=== PATIENT | male | born 1940 | race Caucasian/White ===

== ENCOUNTER → 2017-01-25 | Outpatient (CLI) | payer MEDICARE, BC ==
--- NOTE | 2017-01-25 16:49 | MR ---
EXAMINATION TYPE: MR knee LT wo con DATE OF EXAM: 01/25/2017 COMPARISON: Outside left knee x-ray from 2 days ago. HISTORY: Left Knee Pain TECHNIQUE: Multiplanar, multisequence images of the knee is performed without IV contrast. FINDINGS: MEDIAL MENISCUS: Anterior horn is intact without tear. Posterior horn is markedly abnormal with florin ed increase globular signal distending to articular surface. Complex tear is felt present. There is m arked medial extrusion of medial meniscus on coronal images. LATERAL MENISCUS: Anterior and posterior horns are intact without tear. CRUCIATE LIGAMENTS: The anterior and posterior cruciate ligaments are intact. Posterior cruciate liga ment is markedly thickened, cannot exclude bucket-handle displaced meniscal tear causing this finding . COLLATERAL LIGAMENTS: The medial collateral ligament and lateral collateral ligament complex are inta ct and unremarkable. EXTENSOR MECHANISM: Visualized quadriceps and patellar tendons are intact. EFFUSION: There is partial visualization of moderate to large size suprapatellar joint effusion. POPLITEAL CYST: No popliteal/villanueva cyst. TRICOMPARTMENT SPACES: There is moderate joint space loss patellofemoral compartment with mild spurri ng. There is mild to moderate medial joint space loss. CARTILAGE: There is full-thickness cartilaginous loss over the distal medial femoral condyle with het erogeneous increased signal seen posteriorly on sagittal images 22 through 24 and coronal images 22 a nd 23 measuring up to 1.0 cm transversely. There is chondromalacia patella with thinning of articular cartilage over posterior patellar pole, full-thickness loss is present. BONE MARROW SIGNAL: No no suspicious edema in the posterior patella is evident. OTHER: No additional significant abnormality is appreciated. IMPRESSION: 1. Complex full-thickness tear posterior horn of medial meniscus extending into central body. Flipped meniscus may be present. 2. Moderate tricompartment degenerative changes with full-thickness cartilaginous loss medial tibiofe moral and full-thickness chondromalacia patella. There is osseous contusion or bone marrow edema over the distal medial femoral condyle noted. 3. Moderate to large size suprapatellar joint effusion.
== END | disposition home or self-care (01) ==
LOC: RADMRIMAIN 12:57
PROVIDERS: ATTEND Orthopaedic Surgery
DX: S83.232A Complex tear of medial meniscus, current injury, left knee, initial encounter (principal); M25.462 Effusion, left knee; M22.42 Chondromalacia patellae, left knee

== ENCOUNTER 2017-02-07 08:58 | Day surgery (SDC) | payer MEDICARE, BC ==
[2017-02-06 08:48] VITALS: BMI 26.6
[~2017-02-07 08:58] MED LIST: LACTATED RINGERS 1,000 ML IV SCH
[2017-02-07] MEDS ORDERED: LIDOCAINE 1% 20 ML VIAL (10MG/ML) FOR IV START INTRADERMA ONE (09:38)
[2017-02-07 09:47] VITALS: TEMP 99
[2017-02-07] MEDS ORDERED: PROPOFOL 10 MG/ML 20 ML VIAL IV ONE (10:28)
--- NOTE | 2017-02-07 10:39 | P.GSHP ---
History of Present Illness H&P Date: 02/07/17 Chief Complaint: Screening colonoscopy This is a 76-year-old male referred from Dr. Stone. Patient presents today for screening colonoscopy. He's had issues with some hemorrhoidal bleeding. Past Medical History Past Medical History: Hypertension, Skin Disorder Additional Past Medical History / Comment(s): rash luan legs, hemorrhoids History of Any Multi-Drug Resistant Organisms: None Reported Past Surgical History: Hernia Repair Past Anesthesia/Blood Transfusion Reactions: No Reported Reaction Additional Past Anesthesia/Blood Transfusion Reaction / Comment(s): no family hx Smoking Status: Former smoker - Past Family History Mother Family Medical History: Unable to Obtain Medications and Allergies Home Medications Medication Instructions Recorded Confirmed Type Atorvastatin [Lipitor] 40 mg PO HS 02/06/17 02/07/17 History Esomeprazole Magnesium [NexIUM] 20 mg PO DAILY PRN 02/06/17 02/07/17 History Hydrochlorothiazide [Hydrodiuril] 12.5 mg PO DAILY 02/06/17 02/07/17 History Allergies Allergy/AdvReac Type Severity Reaction Status Date / Time doxycycline Allergy Rash/Hives Verified 02/07/17 09:45 Sulfa (Sulfonamide Allergy Unknown Verified 02/07/17 09:20 Antibiotics) Surgical - Exam Vital Signs Temp Pulse Resp BP Pulse Ox 99.0 F 100 18 139/74 95 02/07/17 09:18 02/07/17 09:18 02/07/17 09:18 02/07/17 09:18 02/07/17 09:18 - General well developed, no distress - Eyes PERRL - ENT normal pinna - Neck no masses - Respiratory normal expansion - Cardiovascular Rhythm: regular - Abdomen Abdomen: soft, non tender Assessment and Plan Plan: Hemorrhoidal bleeding. We'll perform screening colonoscopy.
--- NOTE | 2017-02-07 10:51 | P.OP ---
Date of Procedure: 02/07/17 Preoperative Diagnosis: Screening colonoscopy Hemorrhoids Postoperative Diagnosis: External hemorrhoids Right colon polyp Diverticulosis Procedure(s) Performed: Colonoscopy Anesthesia: MAC Surgeon: Asher Tse Pathology: other (Right colon polyp) Condition: stable Disposition: PACU Description of Procedure: The patient's placed on the endoscopy table in the lateral position. He received IV sedation. Digital rectal exam was performed which revealed no abnormalities. The prostate was symmetric without nodules. The flexible colonoscope was then placed the patient's anus and passed throughout the entire colon. The ileocecal valve sutures. The cecum appeared normal. In the right colon there was a small sessile polyp. This removed the forcep. Scope was then brought back and the remainder of the transverse colon appeared normal. The descending and; had mild diverticulosis. The scope was then brought back the rectum and this appeared normal. Scope was withdrawn for patient.
[2017-02-07 11:19] VITALS: BP 118/75; PULSE 84; RESP 16
== END 2017-02-07 11:37 | disposition home or self-care (01) ==
LOC: ORWHC2ENDO 08:58
PROVIDERS: ATTEND Surgery
DX: Z12.11 Encounter for screening for malignant neoplasm of colon (principal); D12.2 Benign neoplasm of ascending colon; K57.30 Diverticulosis of large intestine without perforation or abscess without bleeding; K64.4 Residual hemorrhoidal skin tags; I10 Essential (primary) hypertension; Z87.891 Personal history of nicotine dependence; Z79.899 Other long term (current) drug therapy; Z88.1 Allergy status to other antibiotic agents
CPT/HCPCS: 88305; 45380; J2704

== ENCOUNTER → 2019-07-22 | Outpatient (CLI) | payer MEDICARE ==
--- NOTE | 2019-07-22 15:57 | CT ---
EXAMINATION TYPE: CT brain wo con DATE OF EXAM: 07/22/2019 HISTORY: Syncope and collapse. CT DLP: 1027.9 mGycm. Automated Exposure Control for Dose Reduction was Utilized. TECHNIQUE: CT scan of the head is performed without contrast. COMPARISON: None. FINDINGS: There is no acute intracranial hemorrhage or midline shift identified. There is diffuse v entricular and sulcal prominence consistent with diffuse age-related cerebral atrophy. There is low- attenuation in the periventricular white matter consistent with chronic small vessel ischemic change. There is increased opacity right mastoid air cells with additional opacity surrounding middle ear os sicles. Scleral calcification bilateral globes. Nasal sinuses are clear. Nasal septum deviated to rig ht of midline. IMPRESSION: No acute intracranial hemorrhage or midline shift. There is mild to moderate diffuse ag e-related cerebral atrophy and chronic small vessel ischemic change noted. Possible right-sided mast oiditis and middle ear infection/cholesteatoma, correlate clinically.
--- NOTE | 2019-07-22 16:45 | US ---
EXAMINATION TYPE: US carotid duplex BILAT DATE OF EXAM: 07/22/2019 COMPARISON: NONE CLINICAL HISTORY: R55 syncope and collapse. No hx HTN. No hx TIA. Patient states passing out at doc tors office. EXAM MEASUREMENTS: RIGHT: Peak Systolic Velocity (PSV) cm/sec ----- Right CCA: 76.7 ----- Right ICA: 62.8 ----- Right ECA: 85.4 ICA/CCA ratio: 0.8 RIGHT: End Diastole cm/sec ----- Right CCA: 16.1 ----- Right ICA: 12.1 ----- Right ECA: 5.1 LEFT: Peak Systolic Velocity (PSV) cm/sec ----- Left CCA: 69.3 ----- Left ICA: 16.5 ----- Left ECA: 57.5 ICA/CCA ratio: 1.0 LEFT: End Diastole cm/sec ----- Left CCA: 13.8 ----- Left ICA: 16.5 ----- Left ECA: 7.8 VERTEBRALS (direction of flow): Right Vertebral: Antegrade Left Vertebral: Antegrade Rhythm: Normal Plaque visualized in right bulb extending into proximal ICA. No elevated velocities or significant s tenosis. Plaque seen in anterior wall of left bulb. IMPRESSION: Moderate degree of grayscale atheromatous plaquing with no sonographically evident hemod ynamically significant stenosis within either visualized carotid arterial system. Criteria for Assigning % of Stenosis / Diameter reduction (Estimation based on the indirect measurements of the internal carotid artery velocities (ICA PSV). 1. Normal (no stenosis)=ICA PSV < 125 cm/s: ratio < 2.0: ICA EDV<40 cm/s. 2. Less than 50% stenosis=ICA PSV < 125 cm/s: ratio < 2.0: ICA EDV<40 cm/s. 3. 50 to 69% stenosis=ICA PSV of 125 to 230 cm/s: ration 2.0 ? 4.0: ICA EDV 40-100 cm/s. 4. Greater than 70% stenosis to near occlusion= ICA PSV > 230 cm/s: ratio > 4.0: ICA EDV > 100 cm/s. 5. Near occlusion= ICA PSV velocities may be low or undetectable: variable ratio and ICA EDV. 6. Total occlusion=unable to detect flow.
== END | disposition home or self-care (01) ==
LOC: RADCTMAIN 15:28
PROVIDERS: ATTEND Internal Medicine
DX: G31.9 Degenerative disease of nervous system, unspecified (principal); I67.2 Cerebral atherosclerosis
CPT/HCPCS: 70450; 93880

== ENCOUNTER → 2019-09-06 | Outpatient (CLI) | payer MEDICARE ==
--- NOTE | 2019-09-06 16:05 | CT ---
EXAMINATION TYPE: CT iac wo con DATE OF EXAM: 09/06/2019 COMPARISON: CT brain 07/22/2019 HISTORY: hearing loss, ear pain CT DLP: 150 mGycm. Automated Exposure Control for Dose Reduction was Utilized. TECHNIQUE: CT scan of internal auditory canal is performed without contrast, thin cut axial images ar e obtained, coronal reformatted images are also reviewed. FINDINGS: The external auditory canals are patent bilaterally. The middle ear ossicles are symmetric and unremarkable. There is fluid filling the bilateral mastoid air cells. Fluid is also within the middle ears bilatera lly. No erosion is evident. There is no evidence of suspicious surrounding soft tissue density to suggest cholesteatoma. The scu lina is preserved bilaterally. The cochlea and the semicircular canals are symmetric and unremarkable . Internal carotid canals appear unremarkable without expansion or erosion. No suspicious cerebella r pontine angle masses are identified.. Temporomandibular joints are maintained bilaterally. Visualized paranasal sinuses are grossly clear. Visualized portion brain parenchyma is felt within normal limits. Right septal deviation is noted. IMPRESSION: 1. Bilateral otitis media 2. Bilateral fluid-filled mastoid air cells. 3. No expansion or erosion or masses within the internal auditory canals. 4. Right septal deviation
== END | disposition home or self-care (01) ==
LOC: RADCTMAIN 14:07
PROVIDERS: ATTEND Otolaryngology
DX: H66.93 Otitis media, unspecified, bilateral (principal); J34.2 Deviated nasal septum; H74.8X3 Other specified disorders of middle ear and mastoid, bilateral
CPT/HCPCS: 70480

== ENCOUNTER 2020-02-13 17:35 | Emergency (ER) | payer MEDICARE ==
[2020-02-13 17:49] VITALS: BP 182/79; PULSE 66; RESP 18; TEMP 98.9
--- NOTE | 2020-02-13 18:14 | ED ---
ENT HPI - General Chief complaint: ENT Stated complaint: ear bleeding Time Seen by Provider: 02/13/20 17:51 Source: patient Mode of arrival: ambulatory Limitations: no limitations - History of Present Illness Initial comments: Patient is a 79-year-old male presenting to the emergency department complaints of some bleeding coming from his left ear that he notices prior to arrival. Patient states he had ear tubes placed approximately 3-[address] Snell. Patient states he feels like he felt a small pop in his left ear before he noticed the bleeding. He denies any pain, dizziness, nausea or vomiting. He denies any recent illness, fever or chills. He denies any trauma to his head. He has no further complaints. - Related Data Home Medications Medication Instructions Recorded Confirmed Atorvastatin [Lipitor] 40 mg PO HS 02/06/17 03/27/17 Esomeprazole Magnesium [NexIUM] 20 mg PO DAILY PRN 02/06/17 03/27/17 hydroCHLOROthiazide [Hydrodiuril] 12.5 mg PO DAILY 02/06/17 03/27/17 Previous Rx's Medication Instructions Recorded Hydrocodone/Acetaminophen [[place] 1 each PO Q6HR PRN #20 tab 03/27/17 5-325] Allergies Allergy/AdvReac Type Severity Reaction Status Date / Time doxycycline Allergy Rash/Hives Verified 02/13/20 17:47 Sulfa (Sulfonamide Allergy Unknown Verified 02/13/20 17:47 Antibiotics) Review of Systems ROS Statement: Those systems with pertinent positive or pertinent negative responses have been documented in the HPI. ROS Other: All systems not noted in ROS Statement are negative. Past Medical History Past Medical History: Hypertension, Skin Disorder Additional Past Medical History / Comment(s): rash luan legs, hemorrhoids, History of Any Multi-Drug Resistant Organisms: None Reported Past Surgical History: Ear Surgery, Hernia Repair Additional Past Surgical History / Comment(s): tubes in his left ear, Past Anesthesia/Blood Transfusion Reactions: No Reported Reaction Additional Past Anesthesia/Blood Transfusion Reaction / Comment(s): no family hx Past Psychological History: No Psychological Hx Reported Smoking Status: Former smoker Past Alcohol Use History: None Reported Past Drug Use History: None Reported - Past Family History Mother Family Medical History: Unable to Obtain General Exam - General Exam Comments Initial Comments: GENERAL: Patient is well-developed and well-nourished. Patient is nontoxic and in no acute distress. HEAD: Atraumatic, normocephalic. EYES: Pupils equal round and reactive to light, extraocular movements intact, sclera anicteric, conjunctiva are normal. Eyelids were unremarkable. ENT: Right TM does have a tube present, there is also a small about of blood coming from the tube and dried in the ear canal. There is no active bleeding. No signs of infection. There is also a small amount of blood dried in the left ear canal, TM does not look infected, there appears to be a tube dislodged sitting in the back of the ear canal towards that TM on the left side. There are no signs of infection bilaterally. Nares patent, oropharynx clear without exudates. Moist mucous membranes. NECK: Normal range of motion, supple without lymphadenopathy or JVD. LUNGS: Unlabored respirations. Breath sounds clear to auscultation bilaterally and equal. No wheezes rales or rhonchi. HEART: Regular rate and rhythm without murmurs, rubs or gallops. ABDOMEN: Soft, nontender, normoactive bowel sounds. No guarding, no rebound. No masses appreciated. : Deferred MUSCULOSKELETAL: Normal extremities with adequate strength and normal range of motion, no pitting or edema. No clubbing or cyanosis. NEUROLOGICAL: Patient is alert and oriented x 3. Motor and sensory are also intact. Normal speech, normal gait. PSYCH: Normal mood, normal affect. SKIN: Warm, Dry, normal turgor, no rashes or lesions noted. Limitations: no limitations Course Vital Signs 02/13/20 17:45 Temperature 98.9 F Pulse Rate 66 Respiratory 18 Rate Blood Pressure 182/79 O2 Sat by Pulse 97 Oximetry Medical Decision Making - Medical Decision Making Patient is a 79-year-old male presenting for bleeding from his left ear that he noticed just prior to arrival. There is no pain with this, there was no trauma. He recently had bilateral tubes placed by Dr. Snell 3-4 months ago. I was able to visualize the tube on the right side over the left side appears to be dislodged sitting in the very back of the ear canal. Patient denies any pain at this time, no dizziness. I recommended following up with Dr. Snell in the next day or 2. Patient is agreement with this plan of care. He is stable for discharge. Return parameters were discussed with the patient and he verbalized understanding. Disposition Clinical Impression: Bleeding from left ear Disposition: HOME SELF-CARE Condition: Stable Instructions (If sedation given, give patient instructions): Earache (ED) Additional Instructions: Please return to the Emergency Department if symptoms worsen or any other concerns. Follow-up with ENT as discussed. Is patient prescribed a controlled substance at d/c from ED?: No Referrals: Caprice Yepez MD [Primary Care Provider] - 1-2 days Rusty Rey MD [STAFF PHYSICIAN] - 1-2 days
== END 2020-02-13 18:20 | disposition home or self-care (01) ==
LOC: EC 17:35
DX: H92.22 Otorrhagia, left ear (principal); I10 Essential (primary) hypertension; Z79.899 Other long term (current) drug therapy; Z88.2 Allergy status to sulfonamides; Z88.1 Allergy status to other antibiotic agents; Z87.891 Personal history of nicotine dependence; Z96.20 Presence of otological and audiological implant, unspecified
CPT/HCPCS: 99282

== ENCOUNTER → 2020-11-23 | Outpatient (CLI) | payer MEDICARE ==
--- NOTE | 2020-11-23 09:53 | CT ---
EXAMINATION TYPE: CT abdomen w con DATE OF EXAM: 11/23/2020 COMPARISON: NONE HISTORY: 80-year-old male N1 8.9, chronic kidney disease TECHNIQUE: Contiguous axial scanning of the abdomen following administration of 80 ml Isovue 300 IV c ontrast. Delayed images through the kidneys and coronal/sagittal reconstructions performed. CT DLP: 540.4 mGycm Automated exposure control for dose reduction was used. FINDINGS: Heart normal size without pericardial effusion. Lung bases clear without pleural effusion. Tiny hiatal hernia. Liver borderline in size at 17.6 cm. No focal lesion. Portal venous system is patent. Possible 9 mm cystic lesion of the right lateral pancreatic head, axial image 34 and coronal image 40 . This can be reassessed at a three-month follow-up MRI. Gallbladder, adrenal glands, spleen within normal limits. Tiny cortical defect lateral mid pole left kidney suggestive of prior infectious or vascular insult. In addition, 5 mm cortical hypodensity anterior mid pole left kidney, too small for accurate CT ana cterization, likely small cyst. Symmetric uptake and excretion of contrast from both kidneys. Moderate atherosclerotic calcifications infrarenal abdominal aorta and visualized proximal common annamaria ac arteries. No dilated small bowel, free fluid, or free air. No mesenteric or retroperitoneal lymphadenopathy. Oral contrast progressed to the hepatic flexure. There is moderate stool burden. Some lower descendin g and proximal sigmoid diverticulosis. No pericolic inflammatory change. The pelvis is not imaged. Bones: Facet arthropathy mid to lower lumbar spine. Moderate degenerative disc disease throughout. Gr yaya 1 retrolisthesis L1-L2 and L2-L3. IMPRESSION: 1. TINY 5 MM CORTICAL HYPODENSITY MID LEFT KIDNEY LIKELY A TINY CYST. SYMMETRIC UPTAKE AND EXCRETION OF CONTRAST FROM BOTH KIDNEYS. 2. POSSIBLE 9 MM CYSTIC LESION OF THE RIGHT LATERAL PANCREATIC HEAD. RECOMMEND THREE-MONTH FOLLOW-UP PANCREAS MRI IN ORDER TO REASSESS AND FURTHER CHARACTERIZE. 3. TINY HIATAL HERNIA, BORDERLINE SIZED LIVER IS 17.6 CM, AND PARTIALLY VISUALIZED LEFT-SIDED COLONIC DIVERTICULOSIS.
== END | disposition home or self-care (01) ==
LOC: RADCTMAIN 06:08
PROVIDERS: ATTEND Internal Medicine
DX: K44.9 Diaphragmatic hernia without obstruction or gangrene (principal); N28.89 Other specified disorders of kidney and ureter; N18.9 Chronic kidney disease, unspecified
CPT/HCPCS: 82565; 84520; 74160; 36415; Q9967

== ENCOUNTER → 2020-12-26 | Outpatient (CLI) | payer MEDICARE ==
--- NOTE | 2020-12-26 16:03 | XR ---
EXAMINATION TYPE: XR chest 2V DATE OF EXAM: 12/26/2020 COMPARISON: None HISTORY: 80-year-old male R05, cough TECHNIQUE: Frontal and lateral views FINDINGS: Heart normal size. Elongation/ectasia of the thoracic aorta. Mild hyperinflation. No consolidation or pleural effusion. IMPRESSION: 1. Elongation/ectasia of the thoracic aorta. 2. Hyperinflation. Correlate for underlying emphysema. 3. Otherwise, no acute process seen.
== END | disposition home or self-care (01) ==
LOC: RADXRMAIN 13:41
PROVIDERS: ATTEND Internal Medicine
DX: R91.8 Other nonspecific abnormal finding of lung field (principal); R05 Cough
CPT/HCPCS: 71046

== ENCOUNTER → 2021-01-08 | Outpatient (CLI) | payer MEDICARE ==
--- NOTE | 2021-01-09 07:23 | CT ---
EXAMINATION TYPE: CT angio chest DATE OF EXAM: 01/08/2021 8:39 PM COMPARISON: None. HISTORY: thoracic aortic ectasia CT DLP: 252.6 mGycm Automated exposure control for dose reduction was used. CONTRAST: CTA scan of the thorax is performed with IV Contrast, patient injected with 80 mL of Isovue 370, aneu [facility] protocol. 3D reconstructed images are created on an independent workstation and reviewed.. FINDINGS: LUNGS: Mild bibasilar linear scarring and/or atelectasis. No suspicious focal consolidation. No nereyda rning pulmonary masses. No pleural effusion or pneumothorax seen bilaterally. MEDIASTINUM: There is satisfactory enhancement of the central pulmonary arteries. Satisfactory enhanc ement of the aorta measuring up to 3.4 cm in diameter at the level of main pulmonary artery axial aranza ge 29. Diameter roughly 3.6 cm at level of aortic root coronal image 14. Normal three-vessel origin f rom the arch. Mild calcified plaque in the aorta with slight ectasia in the descending aorta. There are no greater than 1 cm hilar or mediastinal lymph nodes. No cardiomegaly or pericardial effusion is seen. Coronary artery calcification is noted. OTHER: Slight scoliotic curvature or positioning. 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 No greater than 4.0 cm thoracic aortic aneurysm.
== END | disposition home or self-care (01) ==
LOC: RADCTMAIN 16:21
PROVIDERS: ATTEND Internal Medicine
DX: I77.810 Thoracic aortic ectasia (principal)
CPT/HCPCS: 82565; 84520; 71275; 36415; Q9967

== ENCOUNTER → 2021-07-30 | Outpatient (CLI) | payer MEDICARE ==
--- NOTE | 2021-07-30 21:46 | XR ---
EXAMINATION TYPE: XR KUB DATE OF EXAM: 07/30/2021 Comparison: None Clinical History: 81-year-old male shortness of breath, right-sided abdominal pain, R06.09 DYSPNEA Findings: Nonobstructive bowel gas pattern. Supine imaging limited for assessment of free air. Visualized lower lungs are clear. There is only mild overall stool burden. No dilated small bowel. No definite suspic ious calcifications are seen. Some vascular calcifications in the pelvis. Mild osteoarthrosis of both hips. Impression: Nonobstructive bowel gas pattern. Mild scattered stool.
== END | disposition home or self-care (01) ==
LOC: RADXRMAIN 15:39
PROVIDERS: ATTEND Internal Medicine
DX: R10.9 Unspecified abdominal pain (principal)
CPT/HCPCS: 74018

== ENCOUNTER → 2021-08-06 | Outpatient (CLI) | payer MEDICARE ==
--- NOTE | 2021-08-07 10:42 | MR ---
EXAMINATION TYPE: MR MRCP DATE OF EXAM: 08/06/2021 COMPARISON: CT scan 11/23/2020 HISTORY: K86.2 pancreatic cyst, Abnormal CT November 2020 Standard multiplanar, multisequence MRI departmental protocol Multiplanar, multisequence images of the MRCP were acquired without contrast. FINDINGS: Common bile duct and intrahepatic ducts are of normal caliber. Gallbladder demonstrates no definite. Pancreatic duct measures approximately 1 mm. Hypertrophic and degenerative changes spine. Simple appearing cyst left kidney. Adrenal glands normal morphology. Liver and spleen visualized portions are within normal limits. Atherosclerotic change aorta. Visualized bowel gas pattern 7. Mild fullness peripheral margin of the pancreatic head near the ampulla. IMPRESSION: 1. MRCP demonstrates the biliary ducts to be within normal limits. 2. No definite pancreatic head cyst identified on the limited images provided by MRCP. However, there is mild fullness peripheral margin of the pancreatic head near the ampulla. Recommend dedicated MRI of the abdomen with contrast.
== END | disposition home or self-care (01) ==
LOC: RADMRIMAIN 07:23
PROVIDERS: ATTEND Internal Medicine
DX: K86.2 Cyst of pancreas (principal)
CPT/HCPCS: 74181

== ENCOUNTER 2021-08-07 12:45 | Emergency (ER) | payer MEDICARE ==
[2021-08-07 13:43] VITALS: BP 147/78; PULSE 82; RESP 20; TEMP 98.2
--- NOTE | 2021-08-07 14:08 | XR ---
EXAMINATION TYPE: XR knee complete LT DATE OF EXAM: 08/07/2021 COMPARISON: None HISTORY: 81-year-old male pain after twisting injury today TECHNIQUE: 3 views FINDINGS: Tricompartmental degenerative spurring. At least mild narrowing of medial compartment cartilage and j oint space. Trace joint effusion likely reactive. Some prominent enthesopathy at the at the attachmen t of the quadriceps tendon. Extensor mechanism otherwise appears intact. No acute fracture, subluxati on, dislocation seen. IMPRESSION: At least mild tricompartmental osteoarthrosis, greatest in the medial compartment. Weightbearing view could better assess the degree of joint space narrowing. No acute osseous abnormality seen.
--- NOTE | 2021-08-07 15:42 | ED ---
Lower Extremity Injury HPI - General Chief Complaint: Extremity Injury, Lower Stated Complaint: lt leg pain Time Seen by Provider: 08/07/21 14:58 Source: patient, RN notes reviewed Mode of arrival: ambulatory Limitations: no limitations - History of Present Illness Initial Comments: This is a 70-year-old male who presents to the emergency department for left knee pain. States that when he was getting into his car, he twisted his leg. He is able to ambulate, and has no pain at rest, however he states that anytime he tries to get in the car and has to bend his leg he experiences pain and it takes him several minutes to get into the car. He also notes that it has been difficult for him to put his socks and shoes on due to the pain. He has not ta nicolas any [id number] pain medicine for this. MD Complaint: leg injury Injury: Knee: Left - Related Data Home Medications Medication Instructions Recorded Confirmed Atorvastatin [Lipitor] 40 mg PO HS 02/06/17 08/07/21 Esomeprazole Magnesium [NexIUM] 20 mg PO DAILY 02/06/17 08/07/21 Aspirin EC [Ecotrin Low Dose] 81 mg PO DAILY 08/07/21 08/07/21 Metoprolol Succinate [Toprol XL] 25 mg PO DAILY 08/07/21 08/07/21 Previous Rx's Medication Instructions Recorded Diclofenac Sodium Gel [Voltaren 4 gm TOPICAL QID #100 gm 08/07/21 Gel] Allergies Allergy/AdvReac Type Severity Reaction Status Date / Time doxycycline Allergy Rash/Hives Verified 08/07/21 15:51 Sulfa (Sulfonamide Allergy Unknown Verified 08/07/21 15:52 Antibiotics) Review of Systems ROS Statement: Those systems with pertinent positive or pertinent negative responses have been documented in the HPI. ROS Other: All systems not noted in ROS Statement are negative. Constitutional: Denies: fever, chills ENT: Denies: ear pain, throat pain Respiratory: Denies: cough, dyspnea Cardiovascular: Denies: chest pain, palpitations Gastrointestinal: Denies: abdominal pain, nausea, vomiting, diarrhea Genitourinary: Denies: urgency, dysuria Musculoskeletal: Reports: other (left leg pain) Skin: Denies: rash, lesions Neurological: Denies: headache Past Medical History Past Medical History: Hypertension, Skin Disorder Additional Past Medical History / Comment(s): rash luan legs, hemorrhoids, History of Any Multi-Drug Resistant Organisms: None Reported Past Surgical History: Ear Surgery, Hernia Repair Additional Past Surgical History / Comment(s): tubes in his left ear, Past Anesthesia/Blood Transfusion Reactions: No Reported Reaction Additional Past Anesthesia/Blood Transfusion Reaction / Comment(s): no family hx Past Psychological History: No Psychological Hx Reported Smoking Status: Former smoker Past Alcohol Use History: Occasional Past Drug Use History: None Reported - Past Family History Mother Family Medical History: Unable to Obtain General Exam Limitations: no limitations General appearance: alert, in no apparent distress Head exam: Present: atraumatic, normocephalic, normal inspection Respiratory exam: Present: normal lung sounds bilaterally. Absent: respiratory distress, wheezes, rales, rhonchi, stridor Cardiovascular Exam: Present: regular rate, normal rhythm, normal heart sounds. Absent: systolic murmur, diastolic murmur, rubs, gallop, clicks Left Knee exam: Present: normal inspection, full ROM, pain w/ pronation/supination, full knee extension. Absent: tenderness, swelling, ecchymosis, deformity, crepitus, dislocation, erythema, effusion, posterior draw sign Neurovascular tendon exam: Present: no vascular compromise Neurological exam: Present: alert, oriented X3, CN II-XII intact Psychiatric exam: Present: normal affect, normal mood Skin exam: Present: warm, dry, intact, normal color. Absent: rash Course Vital Signs 08/07/21 13:38 Temperature 98.2 F Pulse Rate 82 Respiratory 20 Rate Blood Pressure 147/78 O2 Sat by Pulse 98 Oximetry Medical Decision Making - Medical Decision Making This is an 81-year-old male who presents to the emergency department with left knee pain. X-ray of the left knee obtained and revealed no acute abnormalities. Physical exam revealed pain with pronation/supination and passive flexion/extension. Discussed with the patient that he likely sprained the knee, but he can expect it to be painful for the next few days. Patient states that he does not like to take Motrin. He does use topical Voltaren Gel on occasions. I suggested he try that for the knee, and provided a refill since he is almost out. He can also take Tylenol for pain relief. Recommended icing the knee for the first 48 hours, followed by heat afterwards. Knee immobilizer provided. If symptoms persist, he should discuss this with his primary care provider, in the event he has a tendon or ligament injury that may need intervention by orthopedics. Return precautions reviewed in depth, the patient is instructed to return to the emergency department if symptoms worsen or do not improve. Patient verbalized understanding. This case was discussed in detail with the attending ED physician. Presentation, findings, and treatment plan discussed in detail as well. - Radiology Data Radiology results: report reviewed, image reviewed Disposition Clinical Impression: Strain of knee and leg, left Disposition: HOME SELF-CARE Instructions (If sedation given, give patient instructions): Knee Sprain (ED), Knee Pain (ED) Additional Instructions: Return to the emergency department if your symptoms worsen or do not improve. Apply Voltaren Gel 4 times a day as needed for pain. Use the knee immobilizer as tolerated/needed. Follow-up with your primary care provider in 1 to 2 days. Prescriptions: Diclofenac Sodium Gel [Voltaren Gel] 4 gm TOPICAL QID #100 gm Is patient prescribed a controlled substance at d/c from ED?: No Referrals: Caprice Yepez MD [Primary Care Provider] - 1-2 days
== END 2021-08-07 15:57 | disposition home or self-care (01) ==
LOC: EC 12:45
DX: S83.92XA Sprain of unspecified site of left knee, initial encounter (principal); I10 Essential (primary) hypertension; Z87.891 Personal history of nicotine dependence; Z88.1 Allergy status to other antibiotic agents; Z88.2 Allergy status to sulfonamides; X58.XXXA Exposure to other specified factors, initial encounter
CPT/HCPCS: 73562; 99284; L1830

== ENCOUNTER 2021-10-29 10:33 | Day surgery (SDC) | payer MEDICARE ==
[2021-10-25 13:54] VITALS: BMI 25.8
--- NOTE | 2021-10-28 13:00 | HP ---
HISTORY AND PHYSICAL DATE OF SURGERY: 10/29/2021 Sami Metz is an 81-year-old gentleman seen with symptomatic left knee osteoarthritis. We discussed options for treatment. He elected to proceed with left total knee arthroplasty. Consent was obtained. Medical clearance was provided by Dr. Yepez. PAST MEDICAL HISTORY: Hypertension, hyperlipidemia, gastroesophageal reflux disease. PAST SURGICAL HISTORY: Left knee arthroscopy. DAILY MEDICATIONS: Atorvastatin, metoprolol, Nexium. ALLERGIES: DOXYCYCLINE, SULFA. SOCIAL HISTORY: He denies current tobacco use. PHYSICAL EVALUATION OF THE LEFT KNEE: His range of motion is negative 2 to 95. Mild effusion. Tenderness, medial joint line. Crepitus, medial patellofemoral compartments with range of motion. Pain with patellofemoral compression. Ligaments stable. Hip rotation without pain. Distal neurovascular exam is intact. Radiographs of the left knee reveal severe osteoarthritic changes. IMPRESSION: 1. Left knee osteoarthritis. 2. Hypertension. 3. Hyperlipidemia. 4. Gastroesophageal reflux disease. PLAN: Left total knee arthroplasty. MMODL / IJN: [id number] /
[~2021-10-29 10:33] MED LIST changes: +ACETAMINOPHEN TAB 500 MG TAB PO PRN; +DEXAMETHASONE SOD PHOSPHATE 4 MG/ML 1 ML VIAL IV ONE; -LACTATED RINGERS 1,000 ML IV SCH; +LIDOCAINE 1% (10MG/ML) FOR IV START INTRADERMA PRN; +MELOXICAM 7.5 MG TAB PO PRN; +ONDANSETRON 4 MG/2 ML VIAL IVP ONE; +TRANEXAMIC ACID IN NACL,ISO-OS 1,000 MG in SALINE 1 100ML.BAG IVPB PRN; +fentaNYL (PF) 50 MCG/ML 2 ML AMP IV PRN
[2021-10-29] MEDS: LACTATED RINGERS 1,000 ML IV SCH (11:19)
[2021-10-29] MEDS ORDERED: MIDAZOLAM 2 MG/2 ML VIAL IV ONE (11:33)
[2021-10-29] MEDS ORDERED: fentaNYL (PF) 50 MCG/ML 2 ML AMP IV ONE (11:33)
--- NOTE | 2021-10-29 12:02 | P.ANPRN ---
Procedure Note - Anesthesia - Nerve Block Performed Left Adductor Canal Infusion Time Out Performed: Yes Date of Procedure: 10/29/21 Procedure Start Time: 11:32 Procedure Stop Time: 11:43 Location of Patient: PreOp Indication: Requested by Surgeon Specifically requested for management of pain by DrSherry: Dariel Beyer Sedation Type: Sedate with meaningful contact maintained Preparation: Sterile Prep, Sterile Dressing Position: Supine Catheter: Indwelling Needle Types: Pajunk Needle Gauge: 18 Ultrasound used to visualize needle placement: Yes Ultrasound used to observe medication spread: Yes Injectate: 0.5% Ropivacaine (see comment for volume) (15 ml + 15 ml NS) Blood Aspirated: No Pain Paresthesia on Injection Noted: No Resistance on Injection: Normal Image Stored and Saved: Yes Events: Uneventful and Well Tolerated
--- NOTE | 2021-10-29 12:03 | P.ANPRN ---
Procedure Note - Anesthesia - Nerve Block Performed Left iPack Single Time Out Performed: Yes Date of Procedure: 10/29/21 Procedure Start Time: 11:44 Procedure Stop Time: 11:50 Location of Patient: PreOp Indication: Requested by Surgeon Specifically requested for management of pain by DrSherry: Dariel Beyer Sedation Type: Sedate with meaningful contact maintained Preparation: Sterile Prep Position: Right Lateral Needle Types: Pajunk Needle Gauge: 21 Ultrasound used to visualize needle placement: Yes Ultrasound used to observe medication spread: Yes Injectate: 0.5% Ropivacaine (see comment for volume) (15 ml +15 ml NS) Blood Aspirated: No Pain Paresthesia on Injection Noted: No Resistance on Injection: Normal Image Stored and Saved: Yes Events: Uneventful and Well Tolerated
[2021-10-29] MEDS ORDERED: ROPIVACAINE 0.2%-NS ON-Q PUMP 1,090 MG, EMPTY PAIN BALL 1 EACH MISCELLANE PRN (12:06)
[2021-10-29] MEDS ORDERED: KETAMINE 10 MG/ML 20 ML VIAL ONE (13:08)
[2021-10-29] MEDS ORDERED: ROPIVACAINE 5 MG/ML 30 ML VIAL ONE (13:08)
[2021-10-29] MEDS ORDERED: PHENYLEPHRINE-0.9% NACL SYG 1,000 MCG/10 ML SYRINGE ONE (13:08)
[2021-10-29] MEDS ORDERED: MIDAZOLAM 2 MG/2 ML VIAL ONE (13:08)
[2021-10-29] MEDS ORDERED: PROPOFOL 10 MG/ML 20 ML VIAL IV ONE (13:08)
[2021-10-29] MEDS ORDERED: SODIUM CHLORIDE 0.9% (PF) 10 ML VIAL ONE (13:08)
[2021-10-29] MEDS ORDERED: TRANEXAMIC ACID IN NACL,ISO-OS 1,000 MG/100 ML BAG ONE (13:08)
[2021-10-29] MEDS ORDERED: fentaNYL (PF) 50 MCG/ML 2 ML AMP ONE (13:08)
[2021-10-29] MEDS ORDERED: ceFAZolin 1,000 MG in SODIUM CHLORIDE 0.9% 1,000 ML IRRIGATION ONE (13:42)
[2021-10-29] MEDS ORDERED: HYDROmorphone 0.5 MG/0.5 ML SYRINGE IVP PRN ×3 (14:59)
[2021-10-29] MEDS ORDERED: ONDANSETRON 4 MG/2 ML VIAL IVP PRN (14:59)
[2021-10-29] MEDS ORDERED: HYDROcodone/APAP 5-325MG 1 EACH TAB PO PRN ×2 (14:59)
[2021-10-29] MEDS ORDERED: NALOXONE 0.4 MG/ML 1 ML VIAL IV PRN (14:59)
--- NOTE | 2021-10-29 14:59 | P.OP ---
Date of Procedure: 10/29/21 Preoperative Diagnosis: Left knee osteoarthritis Postoperative Diagnosis: Left knee osteoarthritis Procedure(s) Performed: Left total knee arthroplasty Implants: 1. Depuy attune size 6 left cruciate retaining cemented femur 2. Depuy attune size 6 fixed bearing cemented tibial baseplate 3. Depuy attune size 6 fixed bearing cruciate retaining 5 mm polyethylene tibial insert 4. Depuy attune 41 mm all polyethylene cemented patella Anesthesia: GETA, regional (Interscalene block, Ipack block) Surgeon: Dariel Beyer Head Of It #1: Juan Martin Estimated Blood Loss (ml): 45 Pathology: other (Bone) Condition: stable Disposition: PACU Indications for Procedure: 81-year-old patient seen with symptomatic left knee osteoarthritis. After treatment options were discussed, he elected to proceed with total knee arthroplasty. Operative Findings: See description of procedure Description of Procedure: Patient was taken to the operative suite after having an adductor canal catheter placed by the department of anesthesia as well as and Ipack block for postoperative pain management Patient underwent a spinal anesthetic by the department of anesthesia. Patient was given preoperative IV intake antibiotics and TXA. A well-padded tourniquet was placed about the left lower extremity. The lower extremity was then prepped and draped in the normal sterile orthopedic fashion. The extremity was elevated, a tourniquet was insufflated to 300. A standard anterior incision was made sharply through skin. Dissection was taken down through the subcutaneous soft tissues down to the extensor mechanism. A medial arthrotomy was performed, patella was everted and knee was flexed. There was advanced osteoarthritis noted. I introduced my distal intramedullary femoral drill. I then introduced the distal femoral cutting jig. Ramin SCHWAB secured the cutting jig with 2 pins. I held retractors in position while Ramin SCHWAB performed the distal femoral resection through the guide area we now removed her distal femoral cutting guide. We now placed our 4-in-1 femoral cutting block and positioned and it was secured with 2 pins by Ramin SCHWAB while I held the block in position. The distal femoral finishing was now completed. A proximal tibial cutting guide was positioned. I held the guide in the appropriate position with both hands well Ramin SCHWAB inserted stabilizing pins into the guide. Proximal tibial cut was made. We now placed a trial femoral component into position, along with an appropriate size tibial tray and insert. We now took the knee through range of motion and had full extension good flexion and good overall soft tissue balance noted. The patella was everted and stabilized with 2 towel clips held by Ramin SCHWAB while I p erformed a flush with patellar quad tendon utilizing a fresh sawblade. We templated the patella, appropriate drill holes were made. An appropriate trial patella was positioned, knee was taken through full range of motion with the patella tracking very nicely. The trial patella was removed. Drill holes were made through the femoral component. All trial components were removed after marking off the appropriate rotation of the tibia. Retractors were now positioned along the proximal tibia. An appropriate keel punch was made with the appropriate size tibial guide by myself on Ramin SCHWAB assisted by holding retractors. At this point appropriate size implants were chosen and opened. The joint was irrigated copiously with pulse lavage mechanical irrigation. The posterior capsule was infiltrated with local analgesic. The wound was irrigated with pulse lavage mechanical irrigation. We mixed antibiotic methylmethacrylate. We placed the knee into flexion. We placed multiple retractors assisted by Ramin SCHWAB to expose the proximal tibia. Once the methyl methacrylate was ready, the tibial component was cemented into place removing any excess methylmethacrylate form by both myself and Ramin SCHWAB. The femoral component was cemented into place removing the removing any excess methylmethacrylate performed by both myself and Ramin SCHWAB. We then inserted the appropriate size polyethylene tibial insert. We made sure that it was locked into position. We took the knee into full extension, and then back in a flexion making sure we had removed any excess methylmethacrylate. The patellar component was then cemented down and secured with clamp. Excess methylmethacrylate removed. We kept the knee in full extension, patellar clamp in position until methylmethacrylate had hardened. Once it had hardened the patellar clamp was removed. The knee was taken through full range of motion. The patella tracked nicely. There was good soft tissue balancing. The t ourniquet was now released. Additional hemostasis was achieved via electrocautery. A second gram of TXA was given. The wound again was irrigated with pulse lavage mechanical irrigation. The superficial soft tissues were infiltrated local analgesic. The extensor mechanism was repaired with Ethibond. We checked the repair with range of motion and it was stable. The subcutaneous soft tissues were repaired with Vicryl in layers. The skin was approximated with pernio/Dermabond. Sterile dressings were applied followed by loose web roll and Vlad bandage. The patient was transferred to a bed, and taken to recovery in stable and satisfactory condition. Ramin SCHWAB assisted with this complex procedure.
--- NOTE | 2021-10-29 16:17 | XR ---
EXAMINATION TYPE: XR knee limited LT DATE OF EXAM: 10/29/2021 COMPARISON: NONE HISTORY: 81-year-old male evaluation for postoperative abnormality in alignment TECHNIQUE: 2 views FINDINGS: Images show placement of left total knee arthroplasty. Alignment grossly anatomic. Small joint effusi on. Anterior soft tissue swelling with scattered soft tissue air as well as intra-articular air relat ed to recent operation. Vascular calcifications are present. No periprosthetic fracture. IMPRESSION: Uncomplicated postoperative appearance left total knee arthroplasty.
[2021-10-29] MEDS: SODIUM CHLORIDE 0.9% 1,000 ML IV SCH (17:57)
[2021-10-29] MEDS ORDERED: ATORVASTATIN 40 MG TAB PO SCH (21:00)
[2021-10-29] MEDS ORDERED: SENNOSIDES-DOCUSATE SODIUM 1 EACH TAB PO SCH (21:00)
[2021-10-29] MEDS: METOPROLOL SUCCINATE (ER) 25 MG TAB.ER.24H PO SCH (23:21)
[2021-10-30] MEDS ORDERED: PANTOPRAZOLE 40 MG TABLET PO SCH (07:30)
[2021-10-30] MEDS: LACTATED RINGERS 1,000 ML IV SCH (07:42)
[2021-10-30] MEDS: METOPROLOL SUCCINATE (ER) 25 MG TAB.ER.24H PO SCH (07:48)
[2021-10-30 08:14] VITALS: BP 131/62; PULSE 65; RESP 18; TEMP 98.5
[2021-10-30] MEDS ORDERED: MULTIVITAMINS, THERA 1 EACH TAB PO SCH ×2 (09:00→12:00)
[2021-10-30] MEDS ORDERED: ASPIRIN 81 MG PO SCH (09:00)
[2021-10-30] MEDS ORDERED: ENOXAPARIN 40 MG/0.4 ML SYRINGE SQ SCH (09:00)
[2021-10-30 09:09] LABS: HCT 35.9 % (39.6-50.0); HGB 11.8 g/dL (13.0-17.0); MCH 29.7 pg (27.0-32.0); MCHC 32.9 g/dL (32.0-37.0); MCV 90.4 fL (80.0-97.0); Mean Platelet Volume 10.4 fL (9.5-12.2); NRBC Per 100 WBC 0 /100 WBCS (0.0-0.0); Platelet Count 200 X 10*3/uL (140-440); RBC 3.97 X 10*6/uL (4.40-5.60); RDW 12.6 % (11.5-14.5); WBC 14.29 X 10*3/uL (4.50-10.00)
--- NOTE | 2021-10-30 09:10 | P.PN ---
Subjective Progress Note Date: 10/30/21 Principal diagnosis: Status post left total knee arthroplasty Patient was evaluated today at bedside, he is in his hospital chair. He was visualized working and ambulating with physical therapy. He did very well with this, he was able to ambulate the stairs. Patient's pain is currently controlled. He denies any headaches, lightheadedness, chest pain or shortness of breath. Objective - Vital Signs Vital signs: Vital Signs Temp 98.5 F 10/30/21 08:00 Pulse 65 10/30/21 08:00 Resp 18 10/30/21 08:00 BP 131/62 10/30/21 08:00 Pulse Ox 95 10/30/21 08:00 FiO2 Intake & Output 10/29/21 10/30/21 10/30/21 18:59 06:59 18:59 Intake Total 851 Output Total 45 300 Balance 806 -300 Weight 75.5 kg Intake: IV 851 Output: Urine 300 Estimated Blood Loss 45 Other: Voiding Method Urinal # Voids 0 4 # Bowel Movements 0 - Exam Left lower extremity: Incision is clean, dry, and intact. The foam dressing is in good condition. There is minimal soft tissue swelling and ecchymosis surrounding the medial and lateral aspects of the incision. Calf is soft, no tenderness with palpation. Plantar flexion, dorsiflexion, EHL, FHL are intact. Sensory exam to light touch throughout the extremity is intact, dorsal pedis pulses 2+. Assessment and Plan Assessment: Postoperative day #1 status post left total knee arthroplasty Plan: Pain control, continue low-dose [place] 5 mg/325 mg. Okay to use Tylenol as needed also DVT prophylaxis, aspirin 81 mg twice a day for 30 days after discharge Wound care instructions were discussed, this included use of the On-Q ball and removal, icing and elevating and showering Home physical therapy and nursing after discharge Encourage incentive spirometer Medical recommendations Discharge planning: Patient is orthopedically stable, likely discharge home today
[2021-10-30] MEDS: SODIUM CHLORIDE 0.9% 1,000 ML IV SCH (09:29)
[2021-10-30 10:49] LABS: Basophils # (A) 0.03 X 10*3/uL (0.00-0.10); Basophils % (A) 0.2 %; Eosinophils # (A) 0.03 X 10*3/uL (0.04-0.35); Eosinophils % (A) 0.2 %; Immature Grans, Automated 0.4 %; Lymphocytes # (A) 1.91 X 10*3/uL (0.90-5.00); Lymphocytes % (A) 13.4 %; Monocytes # (A) 1.56 X 10*3/uL (0.20-1.00); Monocytes % (A) 10.9 %; Neutrophils % (A) 74.9 %
[2021-10-30 10:50] LABS: RBC Morphology NORMAL
--- NOTE | 2021-10-30 10:51 | P.PN ---
Progress Note - Text Progress Note Date: 10/30/21 Postoperative day # 1 status post total knee arthroplasty, and adductor canal catheter placed for postoperative analgesia, currently at ropivacaine 0.2% 8 mL per hour and continuous infusion, visual analogue scale is 4/10, patient using oral pain medication for breakthrough pain. Assessment and plan= Acute postoperative pain, adductor canal catheter for pain control, pain is well controlled we'll continue the same management.
--- NOTE | 2021-10-30 12:19 | P.DS ---
Providers Date of admission: 10/29/2021 Expected date of discharge: 10/30/21 Attending physician: Dariel Beyer Consults: 10/29/21 14:59 Consult Physician Routine Consulting Provider: Caprice Yepez Consult Reason/Comments: Medical management Do you want consulting provider notified?: Yes Primary care physician: Caprice Yepez Hospital Course: Date of admission: 10/29/2021 Date of discharge: 10/30/2021 Admission diagnosis: Status post left total knee arthroplasty Discharge diagnosis: Same Attending physician: Dr. Beyer Surgical procedures: Left total knee arthroplasty Brief history: Patient is a 81-year-old male with a history of progressive primary left knee osteoarthritis. At this point patient has failed conservative treatment measures and has opted to proceed with a elective left total knee arthroplasty. Hospital course: Details of patient's surgery can be found in operative report. Patient tolerated the procedure well and was subsequently transported to orthopedic floor. Patient's orthopeidc and medical care was provided daily. Patient had daily laboratory tests performed for evaluation of overall blood counts. Patient had daily physical therapy to include strengthening range of motion as well as education with walker ambulation. Patient was treated with Lovenox for their postoperative DVT prophylaxis during their inpatient stay. Patient was noted to have a relatively uneventful postoperative course. Patient reported satisfactory pain control with oral pain medications by postoperative day 0. Patient showed satisfactory progress with physical therapy. Patient moved steadily through the program and had no difficulty meeting the goals by postoperative day 1. Given patient's otherwise satisfactory course and having met physical therapy goals, plan is to discharge patient home on postoperative day 1. Discharge condition/disposition: Patient will be discharged home in stable condition. Discharge medications: Instructions are given on resumption of patient's normal daily medications per primary care recommendation, in addition patient will be prescribed [place] 5 mg/325 mg, Senna S,. Discharge instructions: 1. Wound care and infection precautions, keep incision dry and covered while showering, no lotions, creams, moisturizers. No soaking, tubs, pools, hottubs. Do not scrub over the incision. 2. Weight-bear as tolerated with walker / cane until follow-up. 3. Ice and elevate when necessary. Do not exceed 20 minutes per hour with ice pack. 4. Utilize compression sleeve until seen at first follow up appointment. 5. Visiting nursing care. 6. Home physical therapy including home CPM. 7. Pain meds and anticoagulants per prescription. 8. Pain medication has potential to cause constipation. Increase oral fluid and fiber intake. Contact primary care provider if you have not had a bowel movement within 48 hours after discharge 9. No anti-inflammatory medication until discussed at first post operative visit, this including Motrin, Aleve, Mobic, Diclofenac. 10. Follow up in office at 2 weeks postop with Ramin Martin PA-C/Linwood Smith 11. Follow up with your primary care doctor 7-10 days after discharge. 12. Contact [facility] with any questions, . Procedures: Left total knee arthroplasty Patient Condition at Discharge: Good Plan - Discharge Summary Discharge Rx Participant: Yes New Discharge Prescriptions: New Aspirin [Adult Low Dose Aspirin EC] 81 mg PO BID #60 tab Sennosides/Docusate Sodium [Senna-S 8.6-50 mg Tablet] 2 each PO DAILY PRN #30 tablet PRN Reason: Constipation HYDROcodone/APAP 5-325MG [[place] 5-325] 1 tab PO Q6HR PRN #28 tab PRN Reason: Pain No Action Atorvastatin [Lipitor] 40 mg PO HS Esomeprazole Magnesium [NexIUM] 20 mg PO DAILY Diclofenac Sodium Gel [Voltaren Gel] 4 gm TOPICAL QID #100 gm Aspirin EC [Ecotrin Low Dose] 81 mg PO DAILY Multivit-Mins/Iron/Folic/Lycop [Centrum Men's Tablet] 1 each PO DAILY Metoprolol Succinate [Toprol XL] 25 mg PO DAILY Discharge Medication List Atorvastatin [Lipitor] 40 mg PO HS 02/06/17 [History] Esomeprazole Magnesium [NexIUM] 20 mg PO DAILY 02/06/17 [History] Aspirin EC [Ecotrin Low Dose] 81 mg PO DAILY 08/07/21 [History] Diclofenac Sodium Gel [Voltaren Gel] 4 gm TOPICAL QID #100 gm 08/07/21 [Rx] Metoprolol Succinate [Toprol XL] 25 mg PO DAILY 08/07/21 [History] Multivit-Mins/Iron/Folic/Lycop [Centrum Men's Tablet] 1 each PO DAILY 10/25/21 [History] Aspirin [Adult Low Dose Aspirin EC] 81 mg PO BID #60 tab 10/30/21 [Rx] HYDROcodone/APAP 5-325MG [[place] 5-325] 1 tab PO Q6HR PRN #28 tab 10/30/21 [Rx] Sennosides/Docusate Sodium [Senna-S 8.6-50 mg Tablet] 2 each PO DAILY PRN #30 tablet 10/30/21 [Rx] Follow up Appointment(s)/Referral(s): [facility], [NON-STAFF] - As Needed ([facility] will call you to schedule your in home nursing and physical therapy visits. ) [facility] [NON-STAFF] - As Needed (Please call [facility] once home to arrange delivery of the Continous Passive Motion (CPM) machine. ) Juan Martin, PAC [PHYSICIAN F[employer]UMENTS INSPECTOR] - 11/16/21 8:10 am Patient Instructions/Handouts: Knee Replacement (DC) Activity/Diet/Wound Care/Special Instructions: Orthopedic Discharge Instructions: 1. Wound care and infection precautions, keep incision dry and covered while showering, no lotions, creams, moisturizers. No soaking, pools, hot tubs. Do not scrub over incision. 2. Weight-bear as tolerated with walker / cane until follow-up. 3. Ice and elevate when necessary. Do not exceed 20 minutes per hour with ice pack. 4. Utilize compression sleeve until seen at first follow up appointment. 5. Pain meds and anticoagulants per prescription. 6. Pain medication has potential to cause constipation. Increase oral fluid and fiber intake. Contact primary care provider if you have not had a bowel movement within 48 hours after discharge. 7. No anti-inflammatory medication until discussed at first post operative visit, this including Motrin, Aleve, Mobic, Diclofenac 8. Follow up in office at 2 weeks postop with Ramin Martin PA-C / Linwood Mora PA-C 9. Follow up with your primary care doctor 7-10 days after discharge. 10. Contact [facility] with any questions, . Keep incision clean, dry, intact. While showering, cover incision with Sam bedolla. Silver foam dressing may be removed in 7 days, 11/05/2021. Ok to remove pain catheter on 11/01/2021 Medications: Discharge Disposition: HOME WITH HOME HEALTH SERVICES
== END 2021-10-30 13:40 | disposition home health service (06) ==
LOC: OR 10:33 → 4SSUR 15:14 → OR 10-30 13:40
PROVIDERS: ATTEND Orthopaedic Surgery
DX: M17.12 Unilateral primary osteoarthritis, left knee (principal); I10 Essential (primary) hypertension; E78.5 Hyperlipidemia, unspecified; K21.9 Gastro-esophageal reflux disease without esophagitis; N40.0 Benign prostatic hyperplasia without lower urinary tract symptoms; K86.2 Cyst of pancreas; I77.810 Thoracic aortic ectasia; Z79.82 Long term (current) use of aspirin; Z98.890 Other specified postprocedural states; Z79.899 Other long term (current) drug therapy; Z88.1 Allergy status to other antibiotic agents; Z88.2 Allergy status to sulfonamides
CPT/HCPCS: 97162; 64999; 64448; 76942; 85025; 88300; 73560; 27447; C1776; C1713 ×2; J2250; J1100; J0690 ×3; J2405; J1650; J3010; J2795

== ENCOUNTER → 2022-01-24 | Outpatient (CLI) | payer MEDICARE ==
--- NOTE | 2022-01-24 16:13 | CT ---
EXAMINATION TYPE: CT urogram wo/w con CT DLP: 1300.3 mGycm, Automated exposure control for dose reduction was used. DATE OF EXAM: 01/24/2022 3:45 PM COMPARISON: CT abdomen 11/23/2020. CLINICAL INDICATION:Male, 81 years old with history of R10.30 Lower abd pain; PHH, lower abdominal pa in TECHNIQUE: Urogram with unenhanced, nephrographic and excretory phase imaging of the abdomen and pelvis using 10 0 cc of IV contrast Isovue 300 contrast. Coronal and sagittal reformats were performed. One or more C T dose reduction strategies were utilized during this examination. 2D and 3D reconstructions are perf ormed to assist visualization of the urinary tract on a separate workstation. FINDINGS: GENITOURINARY: RIGHT KIDNEY AND URETER: No calculi. No hydronephrosis or hydroureter. No renal mass or other lesions . No urothelial lesions: no filling defect, dilation, stricture or wall thickening. LEFT KIDNEY AND URETER: No calculi. No hydronephrosis or hydroureter. Cortical thinning and scarring of the left mid kidney. Subcentimeter cortical left mid kidney hypodensity focus consistent with a cy st. No other renal mass or other lesions. No urothelial lesions: no filling defect, dilation, strictu re or wall thickening. URINARY BLADDER: Moderately distended with small diverticula involving the bladder dome. No calculi. Contrast is demonstrated layering within the inferior portion air and bladder. No mass or other lesio ns demonstrated within the visualized urinary bladder. Evaluation is limited due to incomplete contra st opacification of the urinary bladder. REPRODUCTIVE: Unremarkable. ABDOMEN LIVER: Unremarkable. GALLBLADDER AND BILE DUCTS: Unremarkable PANCREAS: Unremarkable. SPLEEN: Unremarkable. ADRENAL GLANDS: Unremarkable. STOMACH AND BOWEL: Colonic diverticulosis without evidence for acute diverticulitis. The appendix is within normal limits. No evidence of bowel obstruction. PERITONEUM: No evidence of pneumoperitoneum, free fluid, or adenopathy. VASCULATURE: Moderate atherosclerotic calcifications are present throughout the abdominal aorta and i ts branches. No abdominal aortic aneurysm. MUSCULOSKELETAL: No acute osseous abnormality. Mild retrolisthesis of T12 on L1. Multilevel degenerat krista changes of the visualized spine. SOFT TISSUE/ABDOMINAL WALL: Unremarkable. LOWER CHEST: Minimal linear scarring and/or atelectasis within the lingula and right lower lobe. IMPRESSION: 1. No evidence of urolithiasis or renal/urothelial neoplasm. 2. Urinary bladder diverticula. 3. Colonic diverticulosis without evidence for acute diverticulitis.
== END | disposition home or self-care (01) ==
LOC: RADCTMAIN 13:13
PROVIDERS: ATTEND Internal Medicine
DX: N32.3 Diverticulum of bladder (principal); K57.30 Diverticulosis of large intestine without perforation or abscess without bleeding
CPT/HCPCS: 82565; 84520; 74178; 36415; 74400; Q9967

== ENCOUNTER → 2022-12-25 | Outpatient (CLI) | payer MEDICARE ==
[2022-12-25 09:16] LABS: African American GFR (CKD) 79 (>60 ml/min/1.73 sqM); Blood Urea Nitrogen 20 mg/dL (9-20); Non-African American GFR(CKD) 68 (>60 ml/min/1.73 sqM)
--- NOTE | 2022-12-25 11:31 | US ---
EXAMINATION TYPE: US carotid duplex BILAT DATE OF EXAM: 12/25/2022 COMPARISON: US carotid 07/22/2019 CLINICAL INDICATION: Male, 82 years old with history of I65.23 Carotid stenosis bilateral; Stenosis TECHNIQUE: Carotid duplex ultrasound examination. Indirect Doppler criteria was utilized. FINDINGS: EXAM MEASUREMENTS: RIGHT: Peak Systolic Velocity (PSV) cm/sec ----- Right CCA: 71.0 ----- Right ICA: 81.0 ----- Right ECA: 74.5 ICA/CCA ratio: 1.1 RIGHT: End Diastole cm/sec ----- Right CCA: 11.7 ----- Right ICA: 18.9 ----- Right ECA: 0.0 LEFT: Peak Systolic Velocity (PSV) cm/sec ----- Left CCA: 79.8 ----- Left ICA: 77.6 ----- Left ECA: 65.5 ICA/CCA ratio: 1.0 LEFT: End Diastole cm/sec ----- Left CCA: 7.3 ----- Left ICA: 13.8 ----- Left ECA: 0.0 VERTEBRALS (direction of flow): Right Vertebral: Antegrade Left Vertebral: Antegrade Rhythm: Normal HOSPITAL RECRUITER NOTES: No significant stenosis seen Mild atherosclerotic calcification the bilateral carotid bulbs. IMPRESSION: No ultrasound evidence for hemodynamically significant stenosis of the bilateral visualized carotid a rterial systems. Criteria for Assigning % of Stenosis / Diameter reduction (Estimation based on the indirect measurements of the internal carotid artery velocities (ICA PSV). 1. Normal (no stenosis)=ICA PSV < 125 cm/s: ratio < 2.0: ICA EDV<40 cm/s. 2. Less than 50% stenosis=ICA PSV < 125 cm/s: ratio < 2.0: ICA EDV<40 cm/s. 3. 50 to 69% stenosis=ICA PSV of 125 to 230 cm/s: ration 2.0 ? 4.0: ICA EDV 40-100 cm/s. 4. Greater than 70% stenosis to near occlusion= ICA PSV > 230 cm/s: ratio > 4.0: ICA EDV > 100 cm/s. 5. Near occlusion= ICA PSV velocities may be low or undetectable: variable ratio and ICA EDV. 6. Total occlusion=unable to detect flow.
--- NOTE | 2022-12-25 17:05 | CT ---
CT CHEST FOR PULMONARY EMBOLISM. EXAMINATION TYPE: CT angio chest DATE OF EXAM: 12/25/2022 INDICATION: thoracic aortic ectasis CT DLP: 547.6 mGycm, Automated exposure control for dose reduction was used. CONTRAST: Patient injected with 100 mL of Isovue 370. COMPARISON: 01/08/2021 TECHNIQUE: CT of the chest is performed on a spiral scan at 2 mm thick sections. Study is performed with intravenous contrast timed for evaluation of the aorta. This will limit additional portions of t he evaluation. 3-D MIP images reconstructed by the technologist are reviewed on the computer in the coronal and sagittal planes. 3-D reconstructed images of the aorta were performed on separate compute r. FINDINGS: Thoracic aorta tapers normally throughout its visualized course. No aneurysmal dilatation is evident. No dissection is identified. There is a three-vessel arch. The celiac axis and superior mesenteric a rteries appear normal. Renal arteries appear normal. No mediastinal or hilar adenopathy enlarged by CT criteria is evident. The ascending aorta diameter at the level of the main pulmonary artery is 3.8 cm. The main pulmonary artery diameter at the bifur cation is 2.9 cm. Some coronary artery calcification is present. Lung windows are clear. Limited CT section through the upper abdomen are unremarkable. IMPRESSIONS: 1. 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
--- NOTE | 2022-12-27 08:28 | MR ---
EXAMINATION TYPE: MR abdomen wo/w con DATE OF EXAM: 12/25/2022 3:18 PM INDICATION: Patient age:Male; 82 years old; Reason for study: K86.2. Pancreatic Cyst COMPARISON: CT scan abdomen from 01/24/2022., 11/23/2020 TECHNIQUE: Multiplanar multi-sequence imaging was performed without contrast. Post contrast imaging was performed. Post IV contrast subtraction images were also submitted for review. IV Contrast: 7ml cc Gadavist FINDINGS: LOWER CHEST: No gross irregularity. ABDOMEN Liver: Unremarkable. Gallbladder and Bile ducts: Dilation of the main bile duct measuring up to 9 mm. No evidence for chol edocholithiasis. The gallbladder is partially distended. Mild intrahepatic dilation. Pancreas: No suspicious mass. There is pancreatic divisum morphology to the main pancreatic duct. Sma ll cystic structure along the main pancreatic duct in the pancreatic head measuring 7 x 3 mm. Additio nal small focus of high T2 signal in the pancreatic tail measuring 3 mm. There is focal dilation of t he main pancreatic duct near at the papilla of the duct of Santorini measuring 7 x 5 mm. Spleen: Unremarkable. Adrenal glands: Unremarkable. Kidneys: No evidence of hydronephrosis left cyst stomach and Bowel: Second portion duodenal diverticulum near the pancreatic head. Peritoneum: No evidence of pneumoperitoneum or free fluid. Vasculature: Unremarkable. No aortic aneurysm. Musculoskeletal: The osseous structures appear intact. Lymph Nodes: No gross evidence for lymphadenopathy. Abdominal wall: Unremarkable. Partially visualized urinary bladder demonstrates multiple diverticula. IMPRESSION: 1. 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 There is focal dilation of the accessory duct of Santorini near its patella. Follow-up in one year with MRCP w ith IV contrast to ensure stability. 2. Multiple bladder diverticula present. 3. Left simple appearing renal cysts. 4. Dilation of the common bile duct up to 9 mm. Stable back to at least 01/24/2022.
== END | disposition home or self-care (01) ==
LOC: RADCTMAIN 08:25
PROVIDERS: ATTEND Internal Medicine
DX: I77.810 Thoracic aortic ectasia (principal); I34.0 Nonrheumatic mitral (valve) insufficiency; K86.2 Cyst of pancreas; I65.23 Occlusion and stenosis of bilateral carotid arteries
CPT/HCPCS: 82565; 84520; 93880; 71275; 36415; 74183; A9585; Q9967

== ENCOUNTER → 2023-01-07 | Outpatient (CLI) | payer MEDICARE ==
--- NOTE | 2023-01-07 17:45 | CA ---
Transthoracic Echo Report Name: Sami Metz Age: 82 Gender: M : 1940 Exam Date: 01/07/2023 13:00 Exam Location: [facility] Ht (in): 67 Wt (lb): 162 Ordering Physician: Caprice Yepez MD Attending/Referring Phys: Outside Sales Account Executive Jacklyn Montero RDCS Procedure CPT: Indications: I65.23 OCCLUSION AND STENOSIS Cardiac Hx: Technical Quality: Fair Contrast 1: Total Dose (mL): Contrast 2: Total Dose (mL): MEASUREMENTS (Male / Female) Normal Values 2D ECHO LV Diastolic Diameter PLAX 5.6 cm 4.2 - 5.9 / 3.9 - 5.3 cm LV Systolic Diameter PLAX 4.8 cm IVS Diastolic Thickness 1.1 cm 0.6 - 1.0 / 0.6 - 0.9 cm LVPW Diastolic Thickness 1.2 cm 0.6 - 1.0 / 0.6 - 0.9 cm LV Relative Wall Thickness 0.4 RV Internal Dim ED PLAX 3.9 cm LA Systolic Diameter LX 3.7 cm 3.0 - 4.0 / 2.7 - 3.8 cm LV Diastolic Volume MOD 4C 106.5 cm??? LV Systolic Volume MOD 4C 60.0 cm??? LV Ejection Fraction MOD 4C 43.7 % LV Cardiac Index MOD 4C 1538.3 cm???/min???m??? LV Diastolic Length 4C 8.6 cm LV Systolic Length 4C 7.0 cm LV Diastolic Volume MOD 2C 72.1 cm??? LV Systolic Volume MOD 2C 43.3 cm??? LV Ejection Fraction MOD 2C 39.9 % LV Cardiac Index MOD 2C 951.5 cm???/min???m??? LV Diastolic Length 2C 9.0 cm LV Systolic Length 2C 8.1 cm LA Volume 43.4 cm??? 18 - 58 / 22 - 52 cm??? M-MODE Aortic Root Diameter MM 3.6 cm MV E Point Septal Separation 3.9 cm AV Cusp Separation MM 2.4 cm DOPPLER AV Peak Velocity 112.7 cm/s AV Peak Gradient 5.1 mmHg AI Peak Velocity 323.0 cm/s AI Peak Gradient 41.7 mmHg AI Pressure Half Time 891.6 ms MV Area PHT 2.1 cm??? Mitral E Point Velocity 49.6 cm/s Mitral A Point Velocity 83.2 cm/s Mitral E to A Ratio 0.6 MV Deceleration Time 364.5 ms MV E' Velocity 3.3 cm/s Mitral E to MV E' Ratio 15.0 TR Peak Velocity 225.7 cm/s TR Peak Gradient 20.4 mmHg Right Ventricular Systolic Press 25.4 mmHg FINDINGS Left Ventricle Left ventricular ejection fraction is estimated at 40-45 %. Left ventricular cavity size normal. Left ventricular wall thickness normal. Mildly reduced global left ventricular systolic function. Right Ventricle Moderate right ventricular dilatation. Right ventricular systolic pressure within normal limits. Right Atrium Normal right atrial size. Left Atrium Normal left atrial size. Mitral Valve Structurally normal mitral valve. Trace mitral regurgitation. Aortic Valve Aortic valve sclerosis. [id number] aortic regurgitation. Tricuspid Valve Structurally normal tricuspid valve. Mild tricuspid regurgitation. Pulmonic Valve Pulmonic valve not well visualized. Pericardium No pericardial effusion. Aorta Normal size aortic root and proximal ascending aorta. CONCLUSIONS Mild LV systolic dysfunction Mild to moderate aortic regurgitation Previewed by: Dr. Patric Persaud MD (Electronically Signed) Final Date: 07 January 2023 17:44
== END | disposition home or self-care (01) ==
LOC: RADECHMAIN 12:53
PROVIDERS: ATTEND Internal Medicine
DX: I08.0 Rheumatic disorders of both mitral and aortic valves (principal)
CPT/HCPCS: 93306

== ENCOUNTER → 2023-02-27 | Outpatient (CLI) | payer MEDICARE ==
[2023-02-27 11:40] LABS: African American GFR (CKD) 72 (>60 ml/min/1.73 sqM); Anion Gap 11 mmol/L; Blood Urea Nitrogen 37 mg/dL (9-20); Carbon Dioxide 22 mmol/L (22-30); Chloride 107 mmol/L (98-107); Non-African American GFR(CKD) 62 (>60 ml/min/1.73 sqM); Potassium 5.3 mmol/L (3.5-5.1); Sodium 140 mmol/L (137-145)
[2023-02-27 11:46] LABS: NT-Pro-B-Type Natriuretic Pept 44 pg/mL
== END | disposition home or self-care (01) ==
LOC: LABWHC1 10:12
PROVIDERS: ATTEND Internal Medicine Interventional Cardiology
DX: I42.8 Other cardiomyopathies (principal)
CPT/HCPCS: 36415; 80051; 82565; 83880; 84520

== ENCOUNTER → 2023-08-19 | Outpatient (CLI) | payer MEDICARE ==
--- NOTE | 2023-08-19 12:26 | MR ---
EXAMINATION TYPE: MR Prostate wo/w con DATE OF EXAM: 08/19/2023 10:19 AM COMPARISON: None. CLINICAL INDICATION:Male, 83 years old with history of R97.20 ELEVATED PROSTATE SPECIFIC ANTIGEN [PSA ]; Elevated PSA TECHNIQUE: Multi-planar, multi-sequence imaging of the pelvis is performed prior to and following the uncomplicated administration of bolus intravenous gadolinium. CONTRAST: 7.5 Gadavist Interpretive Criteria: PI-RADS v2.1 SERUM PSA: 3.99 SURGICAL PATHOLOGY: No data available. FINDINGS: Prostatic dimensions: 4.5 x 3.7 x 3.2 cm. "Bullet" Volume:34.87 (PSA density=0.11 ng/mL/mL) CENTRAL GLAND (Central and Transition Zones/CZ+TZ): Multiple bilateral, heterogenous appearing hypertrophic stromal nodules, without suspicious lesion. M edian lobe hypertrophy with protrusion into the base of the bladder. (PI-RADS 2) PERIPHERAL ZONE (PZ): Bilateral linear, indistinct wedgelike areas of low ADC, and low T2 signal, No evidence of masslike a bnormality, or localized perfusional hypervascularity, to further suggest a focus of clinically signi ficant prostate cancer. (PI-RADS 2) SEMINAL VESICLES (SV): Symmetric and unremarkable. PERIPROSTATIC TISSUES: Unremarkable. LYMPH NODES: No enlarged pelvic lymph node. REMAINING PELVIS: Distended bladder with multiple bladder trabeculations and diverticula. No abnormal free or organized intrapelvic fluid collection. No pathologic bowel dilation or mural thickening. Colonic diverticula are present. No hernia visualized OSSEOUS STRUCTURES: No suspicious osseous abnormality. IMPRESSION: 1. No specific features for high-risk prostate cancer. Maximum PI-RADS score: 2. 2. Mild BPH, estimated gland volume 34.87 mL. 4. Bladder diverticula with trabeculated aguilar correlate for chronic bladder outlet obstruction. No s uspicious osseous lesion. No lymphadenopathy. No evidence of prostate adenocarcinoma involving the pe riprostatic tissues.
== END | disposition home or self-care (01) ==
LOC: RADMRIMAIN 09:00
PROVIDERS: ATTEND Internal Medicine
DX: N40.0 Benign prostatic hyperplasia without lower urinary tract symptoms (principal); N32.3 Diverticulum of bladder; R97.20 Elevated prostate specific antigen [PSA]
CPT/HCPCS: 72197; A9585

== ENCOUNTER → 2024-02-10 | Outpatient (CLI) | payer MEDICARE ==
--- NOTE | 2024-02-11 09:50 | MR ---
EXAMINATION TYPE: MR pancreas wo/w con DATE OF EXAM: 02/10/2024 2:22 PM CLINICAL INDICATION: Male, 83 years old with history of K86.2 cyst of pancreas; PHH, Pancreatic cyst. COMPARISON: 12/25/2022, 08/06/2021, 08/19/2023 TECHNIQUE: Multiplanar multi-sequence imaging was performed without contrast. Post contrast imaging was performed. Post IV contrast subtraction images were also submitted for review. IV Contrast: 7 cc Gadavist FINDINGS: LOWER CHEST: No gross irregularity. ABDOMEN Liver: No evidence for hepatic steatosis or cirrhosis. Gallbladder and Bile ducts: Common hepatic duct measuring 8 mm and common bile duct measuring 8 mm. Pancreas: No ductal dilation. No evidence for solid mass. Spleen: Normal for size. Adrenal glands: Unremarkable. Kidneys: Mild dilation of the left renal collecting system findings new from prior. Stomach and Bowel: No evidence for bowel wall thickening or evidence for obstruction. Retroperitoneum/Peritoneum: No evidence of pneumoperitoneum or free fluid. Vasculature: No aortic aneurysm. Musculoskeletal: The osseous structures appear intact. Lymph Nodes: No gross evidence for lymphadenopathy. Abdominal wall: Unremarkable. Urinary bladder demonstrates multiple bladder diverticula. IMPRESSION: Dilation of the extrahepatic biliary system without evidence for stricture or choledocholithiasis. Dilation of the left renal collecting system new from prior correlate for obstructive uropathy. ABDOMEN Liver: Unremarkable. Gallbladder and Bile ducts: Dilation of the main bile duct measuring up to 9 mm. No evidence for chol edocholithiasis. The gallbladder is partially distended. Mild intrahepatic dilation. Pancreas: No suspicious mass. There is pancreatic divisum morphology to the main pancreatic duct. Sta ble small cystic structure along the main pancreatic duct in the pancreatic head measuring 7 x 3 mm. Additional small focus of high T2 signal in the pancreatic tail measuring 3 mm. There is focal dilati on of the main pancreatic duct near at the papilla of the duct of Santorini measuring 7 x 5 mm. Spleen: Unremarkable. Adrenal glands: Unremarkable. Kidneys: No evidence of hydronephrosis left cyst stomach and Bowel: Second portion duodenal diverticulum near the pancreatic head. Peritoneum: No evidence of pneumoperitoneum or free fluid. Vasculature: Unremarkable. No aortic aneurysm. Musculoskeletal: The osseous structures appear intact. Lymph Nodes: No gross evidence for lymphadenopathy. Abdominal wall: Unremarkable. Partially visualized urinary bladder demonstrates multiple diverticula. IMPRESSION: 1. Similar pancreatic divisum with small dilated side branch intraductal papillary mucinous neoplasm versus cyst measuring 7 x 3 mm as well as additional lesion in the pancreatic tail measuring 3 mm. T here is focal dilation of the accessory duct of Santorini near its patella. Follow-up in one year wit h MRCP with IV contrast to ensure stability. 2. Dilation of the left renal collecting system new from prior correlate for obstructive uropathy. 3. Multiple bladder diverticula present. 4. Left simple appearing renal cysts. 5. Stable dilation of the common bile duct up to 8 mm. [facility], , 02/11/2024 9:47 AM
== END | disposition home or self-care (01) ==
LOC: RADMRIMAIN 13:09
PROVIDERS: ATTEND Internal Medicine Gastroenterology
DX: K86.2 Cyst of pancreas
CPT/HCPCS: 74183

== ENCOUNTER → 2024-05-24 | Outpatient (CLI) | payer MEDICARE ==
--- NOTE | 2024-05-24 23:18 | US ---
EXAMINATION TYPE: US bladder DATE OF EXAM: 05/24/2024 COMPARISON: NONE CLINICAL INDICATION: Male, 83 years old with history of N18.1 CHRONIC KIDNEY DISEASE, STAGE 1; TECHNIQUE: Grayscale and color doppler imaging of the bilateral kidneys and urinary bladder. FINDINGS: EXAM MEASUREMENTS: Post Void Residual Volume: 319.2 mL normal less than 50 mL. Color Doppler performed to assess ureteral jets. Bilateral Jets seen: yes Normal Post Void Residual (less than 50ml): no Bladder: multiple diverticulum along posterior wall IMPRESSION: 1. Urinary bladder diverticulum. 2. Significant urinary retention, post void volume of the 319. [facility], , 05/24/2024 11:16 PM
== END | disposition home or self-care (01) ==
LOC: RADUSWWP 15:53
PROVIDERS: ATTEND Internal Medicine
DX: N18.1 Chronic kidney disease, stage 1 (principal); N32.3 Diverticulum of bladder; R33.9 Retention of urine, unspecified
CPT/HCPCS: 76857

== ENCOUNTER → 2024-06-18 | Outpatient (CLI) | payer MEDICARE ==
--- NOTE | 2024-06-19 11:24 | PE ---
EXAMINATION TYPE: PET CT fusion skull to thigh DATE OF EXAM: 06/18/2024 CLINICAL INDICATION:Male, 83 years old with history of C61 prostate ca; TECHNIQUE: Following the intravenous administration of 6.01 mCi of Ga-68 Illuccix (PSMA), whole bod y images are performed from the skull base to the midthigh. Images are reviewed on the computer in t he coronal, axial, and sagittal planes. Reconstructed rotating images are created on independent wor kstation and reviewed on the computer. A non-contrast CT is performed in conjunction with the PET s can. CT DLP: 617.45 mGycm, Automated exposure control for dose reduction was used. COMPARISON: CT 12/25/2022, 01/24/2022, PET/CT None, MRI: 02/10/2024, 08/19/2023, 12/25/2022, 08/06/2021 FINDINGS: Mediastinal SUV mean is 1.7. Hepatic parenchyma SUV mean is 6.4. SKULL BASE AND NECK: No suspicious radiotracer activity. CHEST, MEDIASTINUM, AND HILAR REGION: No suspicious radiotracer activity. ABDOMEN AND PELVIS: Focal radiotracer uptake identified within the left aspect of the prostate gland with a maximum SUV o f 7.1. MUSCULOSKELETAL STRUCTURES: No suspicious radiotracer activity. OTHER CT: Bilateral aphakia with scleral calcifications. Nasal septal deviation to the right. Bilater al carotid bulb calcifications. Multilevel degenerative changes of the visualized spine. Biapical ple ural parenchymal scarring. Bibasilar linear atelectasis. Atherosclerotic calcification of the aorta a nd its branches. Moderate coronary arterial calcifications. Colonic diverticulosis. Urinary bladder d iverticula. Distended distal left ureter. IMPRESSION: Focal radiotracer uptake within the left aspect of the prostate gland likely representing reported pr ostate cancer. No extraprostatic radiotracer uptake to suggest metastasis. [facility], , 06/19/2024 11:21 AM
== END | disposition home or self-care (01) ==
LOC: RADPETMAIN 09:24
PROVIDERS: ATTEND Radiology Radiation Oncology
DX: C61 Malignant neoplasm of prostate (principal); N32.3 Diverticulum of bladder; I70.0 Atherosclerosis of aorta; K57.30 Diverticulosis of large intestine without perforation or abscess without bleeding; J34.2 Deviated nasal septum
CPT/HCPCS: 78815; A9596

== ENCOUNTER → 2024-09-20 | Outpatient (CLI) | payer MEDICARE | END | disposition home or self-care (01) | LOC: LABWHC1 11:33 | PROVIDERS: ATTEND Radiology Radiation Oncology | DX: C61 Malignant neoplasm of prostate (principal); Z87.891 Personal history of nicotine dependence; Z53.9 Procedure and treatment not carried out, unspecified reason ==

== ENCOUNTER → 2024-12-14 | Outpatient (CLI) | payer MEDICARE ==
[2024-12-14 17:09] LABS: NT-Pro-B-Type Natriuretic Pept 180 pg/mL (0-450)
[2024-12-14 17:25] LABS: ALT 28 U/L (10-49); AST 32 U/L (14-35); Albumin 4.5 g/dL (3.8-4.9); Albumin/Globulin Ratio 1.55 Ratio (1.60-3.17); Alkaline Phosphatase 59 U/L (41-126); Anion Gap 11.50 mmol/L (4.00-12.00); BUN/Creat Ratio 18.31 Ratio (12.00-20.00); Blood Urea Nitrogen 23.8 mg/dL (9.0-27.0); Calcium 9.6 mg/dL (8.7-10.3); Carbon Dioxide 22.5 mmol/L (21.6-31.8); Chloride 102 mmol/L (96-109); Globulin 2.9 g/dL (1.6-3.3); Glucose 97 mg/dL (70-110); Potassium 4.8 mmol/L (3.5-5.5); Prostate Specific Antigen 0.32 ng/mL (0.000-6.500); Sodium 136 mmol/L (135-145); Total Protein 7.4 g/dL (6.2-8.2)
== END | disposition home or self-care (01) ==
LOC: LABWHC1 11:23
PROVIDERS: ATTEND Internal Medicine Interventional Cardiology
DX: C61 Malignant neoplasm of prostate (principal); I42.8 Other cardiomyopathies; Z87.891 Personal history of nicotine dependence
CPT/HCPCS: 36415; 80053; 83880; 84153; 84403